=== PATIENT | female | born 1990 | race Caucasian/White ===

== ENCOUNTER 2017-11-20 19:41 | Emergency (ER) | payer SELFPAY ==
[~2017-11-20 19:41] MED LIST: FERR1TAB51
== END 2017-11-20 20:23 | disposition left against medical advice (07) ==
LOC: ER 19:41
DX: R51 Headache (principal); Z53.21 Procedure and treatment not carried out due to patient leaving prior to being seen by health care provider

== ENCOUNTER 2017-11-20 22:36 | Emergency (ER) | payer MEDICAID ==
[~2017-11-20] VITALS: Ht 157.5 cm; Wt 84.0 kg
[2017-11-21] MEDS ORDERED: KETOROLAC 60MG/2ML VIAL IM STA (01:50)
[2017-11-21] MEDS ORDERED: METOCLOPRAMIDE HCL 5MG TABLET PO ONE (02:00)
[2017-11-21 02:03] LABS: BASOPHILS % 0.4 % (0.0-2.0); HEMATOCRIT. 41.2 % (36.0-48.0); HEMOGLOBIN. 14.1 g/dL (12.0-16.0); LYMPHOCYTES % 36.4 % (20.0-50.0); MEAN CORPUSCULAR HEMOGLOBIN 29.6 pg (28.0-32.0); MEAN CORPUSCULAR VOLUME 86.3 fL (81.0-99.0); MEAN PLATELET VOLUME 9.1 fl (7.4-10.4); MONOCYTES % 6.2 % (2.0-8.0); PLATELET 244 x1000/uL (130-400); RED BLOOD CELL COUNT 4.77 mill/uL (4.2-5.4); RED CELL DISTRIBUTION WIDTH 12.7 % (11.6-14.6)
[2017-11-21 02:10] LABS: CHLORIDE 101 mEq/L (98-107)
[2017-11-21 02:18] LABS: CARBON DIOXIDE 29 mEq/L (21-32)
[2017-11-21 02:44] LABS: CLARITY URINE CLEAR (CLEAR); COLOR URINE YELLOW (YELLOW); KETONES URINE NEGATIVE (NEGATIVE); LEUKOCYTE ESTERASE URINE NEGATIVE (NEGATIVE); NITRITE URINE NEGATIVE (NEGATIVE); OCCULT BLOOD URINE NEGATIVE (NEGATIVE); PROTEIN URINE NEGATIVE (NEGATIVE); SPECIFIC GRAVITY URINE 1.016 (1.005-1.030); UROBILINOGEN URINE 0.2 E.U./dL (0.2-1.0)
[2017-11-21 03:08] VITALS: BP 115/70
== END 2017-11-21 04:37 | disposition home or self-care (01) ==
LOC: ER 22:36
DX: R51 Headache (principal); R42 Dizziness and giddiness
CPT/HCPCS: 36415; 80053; 81003; 81025; 85025; 93005; 96372; 99285; J1885; Z7610; J8597

== ENCOUNTER 2022-08-07 10:25 | Emergency (ER) | payer MEDICAID ==
[~2022-08-07] VITALS: Ht 165.1 cm; Wt 75.0 kg
[2022-08-07] MEDS ORDERED: IBUPROFEN 600MG TABLET PO STA (11:12)
[2022-08-07 11:46] LABS: BASOPHILS % 0.3 % (0.0-2.0); CHLORIDE 107 mEq/L (98-107); EOSINOPHILS % 0.1 % (0.0-5.0); HEMATOCRIT. 39.6 % (36.0-48.0); HEMOGLOBIN. 13.3 g/dL (12.0-16.0); LYMPHOCYTES % 14.7 % (20.0-50.0); MEAN CORPUSCULAR HEMOGLOBIN 29.3 pg (28.0-32.0); MEAN CORPUSCULAR VOLUME 87.3 fL (81.0-99.0); MEAN PLATELET VOLUME 9.7 fl (7.4-10.4); MONOCYTES % 3.2 % (2.0-8.0); NEUTROPHILS % 81.7 % (40.0-76.0); PLATELET 249 x1000/uL (130-400); RED BLOOD CELL COUNT 4.54 mill/uL (4.2-5.4)
[2022-08-07 12:03] LABS: HCG SCREEN NEGATIVE
[2022-08-07 16:05] VITALS: BP 123/69
== END 2022-08-07 16:05 | disposition home or self-care (01) ==
LOC: ER 10:25
DX: R07.89 Other chest pain (principal); R06.02 Shortness of breath; R11.0 Nausea
CPT/HCPCS: 36415; 71045; 80053; 83880; 84484; 84703; 85025; 99284

== ENCOUNTER 2022-11-13 19:12 | Emergency (ER) | payer MEDICAID ==
[~2022-11-13] VITALS: Ht 157.5 cm; Wt 78.7 kg
[2022-11-13 19:19] VITALS: BP 138/83
[2022-11-14] MEDS ORDERED: ACETAMINOPHEN 325MG TABLET PO ONE (02:45)
[2022-11-14 03:05] LABS: BASOPHILS % 0.4 % (0.0-2.0); EOSINOPHILS % 1.1 % (0.0-5.0); HEMATOCRIT. 37.4 % (36.0-48.0); HEMOGLOBIN. 12.7 g/dL (12.0-16.0); LYMPHOCYTES % 36.1 % (20.0-50.0); MEAN CORPUSCULAR HEMOGLOBIN 28.8 pg (28.0-32.0); MEAN CORPUSCULAR VOLUME 85.2 fL (81.0-99.0); MEAN PLATELET VOLUME 9.9 fl (7.4-10.4); MONOCYTES % 6.4 % (2.0-8.0); PLATELET 225 x1000/uL (130-400); RED BLOOD CELL COUNT 4.39 mill/uL (4.2-5.4); RED CELL DISTRIBUTION WIDTH 13.1 % (11.6-14.6)
[2022-11-14 03:18] LABS: CHLORIDE 104 mEq/L (98-107)
== END 2022-11-14 05:10 | disposition home or self-care (01) ==
LOC: ER 19:12
DX: R07.89 Other chest pain (principal); R06.02 Shortness of breath
CPT/HCPCS: 36415; 71045; 80053; 81025; 83880; 84484; 85025; 85379; 93005; 99285